=== PATIENT | female | born 2005 | race Caucasian/White ===

== ENCOUNTER 2024-01-08 21:18 | Emergency (ER) | payer BC | END 2024-01-08 22:20 | disposition home or self-care (01) | LOC: MADERS 21:18 | DX: S90.31XA Contusion of right foot, initial encounter (principal); E10.9 Type 1 diabetes mellitus without complications; J45.909 Unspecified asthma, uncomplicated; W08.XXXA Fall from other furniture, initial encounter | CPT/HCPCS: 99283 ==